=== PATIENT | female | born 1985 | race Caucasian/White ===

== ENCOUNTER 2018-06-04 20:54 | Observation (INO) | payer BC ==
[2018-06-04 21:33] LABS: Bilirubin Negative (Negative); Blood, Urine Small (Negative); Clarity Hazy (Clear); Glucose, Urine (Dipstick) Negative (Negative); Leukocyte Small (Negative); Nitrite Negative (Negative); Protein, Urine (Dipstick) 30 mg/dL (Neg-Trace); Urobilinogen 0.2 mg/dL (0.2-1.0)
[2018-06-04 21:41] LABS: #Basophils 0.1 thou/uL (0.0-0.2); #Monocytes 0.7 thou/uL (0.11-0.59); #Neutrophils 11.4 thou/uL (1.40-6.50); %Basophils 0.5 % (0.0-1.0); %Eosinophils 0.2 % (0.0-10.0); %Lymphocytes 7.8 % (21.0-51.0); %Monocytes 5.2 % (0.0-10.0); %Neutrophils 86.3 % (42.0-75.0); Hemoglobin 13.4 g/dL (12.0-16.0); Mean Corpuscular Volume 84.7 fL (78.0-98.0); Mean Platelet Volume 9.2 fL (7.4-10.4); Platelet Count 241 thou/uL (130-400); RBC Distribution Width 11.4 % (11.5-14.5); Red Blood Cell (RBC) Count 4.79 mill/uL (4.20-5.40); White Blood Cell (WBC) Count 13.2 thou/uL (4.8-10.8)
[2018-06-04 21:42] LABS: Bacteria/HPF 1+ HPF (None Seen); RBC/HPF 0-3 HPF (0-3)
[2018-06-04] MEDS ORDERED: Morphine 4 MG/ML VIAL ONE (21:53)
[2018-06-04] MEDS ORDERED: Ondansetron HCl/PF 4 MG/2 ML Vial ONE (21:54)
[2018-06-04] MEDS ORDERED: Acetaminophen 500 MG TAB ONE (21:54)
[2018-06-04 22:01] LABS: ALT (SGPT) 7 U/L (8-55); AST (SGOT) 16 U/L (5-34); Albumin 4.3 g/dL (3.5-5.0); Alkaline Phosphatase 64 U/L (40-150); Anion Gap 16 mmol/L (10-20); BUN (Urea Nitrogen) 13 mg/dL (7.0-18.7); Bilirubin, Total 0.5 mg/dL (0.2-1.2); Calc. Creatinine Clearance 0 mL/min (70-130); Calcium 9.4 mg/dL (7.8-10.44); Carbon Dioxide 25 mmol/L (22-29); Chloride 102 mmol/L (98-107); Estimated GFR-MDRD 79; Globulin 3.3 g/dL (2.4-3.5); Glucose 91 mg/dL (70-105); Potassium 3.8 mmol/L (3.5-5.1); Protein, Total 7.6 g/dL (6.0-8.3); Sodium 139 mmol/L (136-145)
--- NOTE | 2018-06-04 23:56 | CT ---
CT ABDOMEN AND PELVIS WITH ORAL AND IV CONTRAST: HISTORY: Right lower quadrant pain. FINDINGS: The lung bases are clear. The liver, spleen, pancreas, adrenal glands, and kidneys are normal. No c alcified gallstones are seen. No free air, free fluid, or lymphadenopathy is seen in the abdomen or pelvis. The small bowel loops are not abnormally dilated. There is thickening of the wall of the te rminal ileum. An abnormally dilated appendix is not seen. Uterus and ovaries are present. IMPRESSION: No definite evidence of appendicitis. There is thickening of the wall of the terminal ileum. The po ssibility of irritable bowel disease should be considered. Further evaluation with colonoscopy would be helpful. POS: [facility]
[2018-06-05] MEDS ORDERED: metroNIDAZOLE 500 MG/100 ML BAG ONE (01:03)
[2018-06-05] MEDS ORDERED: Cefepime 2 GM VIAL ONE (01:03)
[2018-06-05] MEDS ORDERED: Ondansetron HCl/PF 4 MG/2 ML Vial ONE (02:15)
[2018-06-05] MEDS ORDERED: Dextrose 5%-Lactated Ringers 1,000 ML IV SCH (03:00)
[2018-06-05 03:20] VITALS: BMI 27.1
[2018-06-05] MEDS ORDERED: Acetaminophen 1,000 MG in Premix Bag 1 BAG IVPB PRN (03:23)
[2018-06-05] MEDS: Ketorolac Tromethamine 30 MG/ML VIAL IVP PRN ×4 (03:33→20:40)
[2018-06-05 07:14] LABS: #Lymphocytes 1.2 thou/uL (1.20-3.40); #Monocytes 1.1 thou/uL (0.11-0.59); #Neutrophils 10.3 thou/uL (1.40-6.50); %Basophils 0.2 % (0.0-1.0); %Eosinophils 0.2 % (0.0-10.0); %Lymphocytes 9.3 % (21.0-51.0); %Monocytes 8.4 % (0.0-10.0); Mean Corpuscular HGB CONC 33.8 g/dL (32.0-36.0); Mean Corpuscular Hemoglobin 28.9 pg (27.0-31.0); Mean Corpuscular Volume 85.8 fL (78.0-98.0); Mean Platelet Volume 7.8 fL (7.4-10.4); Platelet Count 234 thou/uL (130-400); RBC Distribution Width 11.5 % (11.5-14.5); Red Blood Cell (RBC) Count 4.13 mill/uL (4.20-5.40); White Blood Cell (WBC) Count 12.6 thou/uL (4.8-10.8)
[2018-06-05] MEDS ORDERED: Ondansetron ODT 8 MG TAB PO PRN (07:31)
[2018-06-05] MEDS ORDERED: Ondansetron ORAL SOLN. 4 MG/5 ML UDCUP PO PRN ×2 (07:31)
[2018-06-05] MEDS ORDERED: Ondansetron ODT 8 MG TAB SL PRN (07:31)
[2018-06-05] MEDS ORDERED: Ondansetron HCl/PF 4 MG/2 ML Vial IVP PRN (07:31)
--- NOTE | 2018-06-05 07:44 | HP ---
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 of right lateral mid abdominal pain. Approximately 11:30 a.m. she developed fever and nausea. Pain is worse with movement. She has not had any alterat ion of her bowel habits. She denies prior biliary symptoms. It does hurt when she takes a deep charisse th. She is a 2, para 2 single mother of a 12-year-old and 9-year-old. ALLERGIES: PENICILLIN. TOBACCO: None. ALCOHOL: Rarely. PAST SURGICAL HISTORY: Hand surgery. PAST MEDICAL HISTORY: Polycystic ovaries. REVIEW OF SYSTEMS: Ten point noncontributory. PHYSICAL EXAMINATION: VITAL SIGNS: Height 5 foot 6, 168 pounds, 27 BMI, 100.6 degrees 103, 99/55. HEENT: Unremarkable. Sclerae are nonicteric. LUNGS: Clear to auscultation. CARDIAC: Regular rate and rhythm without murmur or gallop. ABDOMEN: Soft, tenderness in her right upper quadrant with mild guarding, right lower quadrant is no ntender. No palpable masses. EXTREMITIES: Unremarkable. No ankle edema, palpable pedal and radial pulses. SKIN: Nonjaundiced. LYMPH: No lymphadenopathy in neck, axilla or groins. LABORATORY DATA: White count 12, down from 13 yesterday, hemoglobin 12. Comprehensive metabolic pro file normal with normal liver function test, urinalysis reveals a small amount of blood, 1+ bacteria. White count 4-6. ASSESSMENT AND PLAN: Fever, abdominal pain of uncertain etiology. CAT scan revealed changes of mild ileal inflammation. An inflamed enlarged appendix was not visualized. Urinalysis is not suggestive of a urinary tract infection. Nitrites are negative. There is no inflammation noted on her CAT sca n of her gallbladder. We will obtain a gallbladder ultrasound and make further recommendations after this. Continue n.p.o.
[2018-06-05] MEDS ORDERED: Lactated Ringer's 1,000 ML IV SCH (07:45)
[2018-06-05] MEDS ORDERED: Ondansetron HCl/PF 4 MG/2 ML Vial IVP SCH (07:45)
[2018-06-05] MEDS ORDERED: metroNIDAZOLE 500 MG in Premix Bag 1 BAG IVPB SCH (09:00)
[2018-06-05] MEDS: Enoxaparin Sodium 40 MG/0.4 ML SYRINGE SC SCH (09:02)
[2018-06-05] MEDS ORDERED: ISOVUE-370 76%-LOCM 1 ML ONE (09:49)
--- NOTE | 2018-06-05 10:01 | ULT ---
RIGHT UPPER QUADRANT ULTRASOUND: INDICATIONS: Fever. Right upper quadrant pain. COMPARISON: None. FINDINGS: No focal hepatic lesion is evident. The gallbladder is within normal limits. No sonographic Iglesias sign is reported. The common bile duct measures 3 mm. The visualized aorta and right kidney are nor mal appearing. The right kidney measures 11 cm in length. the visualized aspects of the abdominal a flor are normal appearing. IMPRESSION: No acute sonographic abnormality of the right upper quadrant. POS: [facility]
[2018-06-05] MEDS: Lactated Ringer's 1,000 ML IV SCH (15:11)
[2018-06-05] MEDS ORDERED: Metoclopramide HCl 10 MG/2 ML VIAL IVP SCH (15:15)
[2018-06-05 16:01] LABS: BHCG - Serum Negative (NEGATIVE); Pregs Control Background? CLEAR/WHITE (CLR/WHITE); Pregs Control Bar Appear? YES (CONTROL BAR)
--- NOTE | 2018-06-05 18:36 | CT ---
CT ABDOMEN AND PELVIS WITH ORAL AND IV CONTRAST: 06/05/18 HISTORY: Right lower quadrant pain. FINDINGS: Comparison is made with exam from previous night. Since yesterday's exam, there has been development of inflammatory changes adjacent to the right kid betsy, particularly the superiorly pole in Duncan's pouch. A focal hypodensity is seen in the right k idney measuring about 13 mm. There is mild heterogeneity and enhancement of the right kidney compared to the left. No free air or free fluid is seen in the abdomen or pelvis. There are a few prominent r ight common iliac lymph nodes. The small bowel loops are not abnormally dilated. The terminal ileum w hich appeared thickened on yesterday's exam has a normal appearance on the current study. A normal ap pearing appendix is seen. The remainder of the exam is otherwise stable. IMPRESSION: 1. No evidence of appendicitis. 2. Findings are suspicious for right pyelonephritis with probable phlegmonous change. Discussed over the telephone with Dr. Florez at 5:30 p.m. POS: [facility]
[2018-06-06] MEDS: Ketorolac Tromethamine 30 MG/ML VIAL IVP PRN (04:34)
[2018-06-06] MEDS: Lactated Ringer's 1,000 ML IV SCH ×3 (05:20→14:52)
[2018-06-06 06:20] LABS: #Eosinphils 0.1 thou/uL (0.0-0.7); #Lymphocytes 1.3 thou/uL (1.20-3.40); #Neutrophils 8.9 thou/uL (1.40-6.50); %Basophils 0.4 % (0.0-1.0); %Eosinophils 0.5 % (0.0-10.0); %Lymphocytes 11.2 % (21.0-51.0); %Monocytes 9.3 % (0.0-10.0); %Neutrophils 78.7 % (42.0-75.0); Hemoglobin 10.7 g/dL (12.0-16.0); Mean Corpuscular HGB CONC 33.7 g/dL (32.0-36.0); Mean Corpuscular Hemoglobin 29.2 pg (27.0-31.0); Mean Corpuscular Volume 86.7 fL (78.0-98.0); Mean Platelet Volume 8.2 fL (7.4-10.4); Platelet Count 199 thou/uL (130-400); RBC Distribution Width 11.3 % (11.5-14.5); Red Blood Cell (RBC) Count 3.64 mill/uL (4.20-5.40); White Blood Cell (WBC) Count 11.2 thou/uL (4.8-10.8)
--- NOTE | 2018-06-06 13:34 | PRG ---
DATE OF SERVICE: 06/06/2018 HISTORY: Ms. Manjarrez is doing better today. Her pain is much greatly improved. She had a fever to 1 02 degrees at 4:30 this morning, but has been afebrile since. Her white count was 11.2 today. CAT s can yesterday of the abdomen and pelvis with p.o. and IV contrast Reglan prior oral contrast revealed inflammatory changes around the kidney specific for pyelonephritis, although her urinary cultures re vealed 10-25,000 gram-negative rods. PHYSICAL EXAMINATION: LUNGS: Clear to auscultation. CARDIAC: Regular rate and rhythm without murmur or gallop. ABDOMEN: Soft, tenderness resolved. ABDOMEN: Nontender, no pain. EXTREMITIES: Unremarkable. ASSESSMENT AND PLAN: Resolving pyelonephritis. Continue IV Levaquin. If is afebrile for the next 2 4 hours perhaps she can go home tomorrow on oral antibiotics. She is tolerating her diet.
[2018-06-06] MEDS: Enoxaparin Sodium 40 MG/0.4 ML SYRINGE SC SCH (17:08)
[2018-06-07] MEDS: Lactated Ringer's 1,000 ML IV SCH ×2 (02:11→07:38)
[2018-06-07 07:36] VITALS: BP 105/66; TEMP 99.1
--- NOTE | 2018-06-07 07:52 | PRG ---
DATE OF SERVICE: 06/07/2018 Ms. Maxwell is doing well today. There is no pain. PHYSICAL EXAMINATION: VITAL SIGNS: Vital signs stable, afebrile. LUNGS: Clear to auscultation. CARDIAC: Regular rate and rhythm without murmur or gallop. ABDOMEN: Soft, nontender, no masses. EXTREMITIES: Unremarkable. ASSESSMENT AND PLAN: Pyelonephritis. Home with Levaquin for 10 days. Follow up in my office p.r.n. Follow up with primary care physician [id number] to two weeks. Call me to follow up p.r.n.
--- NOTE | 2018-06-07 12:12 | DIS ---
DATE OF ADMISSION: 06/04/2018 DATE OF DISCHARGE: 06/07/2018 DISCHARGE DIAGNOSIS: Pyelonephritis. HISTORY: A 32-year-old female presenting with abdominal pain, seen in [facility] [address] by Dr. Kurtz. She had a white count of 13,000, fevers. She had history of pain r ight lateral mid abdomen onset early in the morning, fever following 4 hours later. Later in the mor gurpreet with nausea. She had a CAT scan demonstrating terminal ileal inflammation. She had a urinalysi s that was not suspicious. She was admitted and seen and felt to have an atypical history and exam f or appendicitis. She received antibiotics in the emergency room and continued with Flagyl as she had a PENICILLIN allergy. Once I saw her and determined that she did not have appendicitis Flagyl was d iscontinued. She had some loose stools and stool cultures cyclosporine negative. Urine cultures 03/2018 at 2100 clean catch showed 10-25,000 gram negative rods. The patient because of her persiste nt fevers underwent repeat CAT scan p.o. and IV contrast revealing resolution of the TI changes with changes of pyelonephritis. She was treated with Levaquin IV. Her fevers resolved. Pain resolved. She is being discharged home at this time with follow up with her primary care physician, Levaquin p. o. 500 b.i.d. for 10 days. Follow up in my office p.r.n.
== END 2018-06-07 08:07 | disposition home or self-care (01) ==
LOC: SCSER 20:54 → 3SE 06-05 01:12
PROVIDERS: ADMIT Specialist; ATTEND Specialist
DX: N12 Tubulo-interstitial nephritis, not specified as acute or chronic (principal); B96.89 Other specified bacterial agents as the cause of diseases classified elsewhere; E28.2 Polycystic ovarian syndrome; Z79.3 Long term (current) use of hormonal contraceptives; Z88.0 Allergy status to penicillin
CPT/HCPCS: 36415; 74177; 76705; 80053; 81003; 81015; 83605; 83630; 84703; 85025; 87015; 87040; 87045; 87046; 87086; 87206; 87328; 87329; 87449; 87899; 96361; 96365; 96367; 96368; 96372; 96375; 96376; G0378; J0131; J0692; J1650; J1885; J1956; J2270; J2405; J2765

== ENCOUNTER 2020-02-25 12:28 | Emergency (ER) | payer OTHER ==
[2020-02-26 12:17] LABS: SARS-CoV-2 MS2 Positive; SARS-CoV-2 N Gene Negative; SARS-CoV-2 S Gene Negative; SARS-CoV-2 orf1ab Negative
== END 2020-02-25 13:00 | disposition home or self-care (01) ==
LOC: ERS 12:28
DX: R05 Cough (principal); R09.81 Nasal congestion; R11.10 Vomiting, unspecified; R51 Headache; Z20.828 Contact with and (suspected) exposure to other viral communicable diseases; F41.9 Anxiety disorder, unspecified; E28.2 Polycystic ovarian syndrome
CPT/HCPCS: 87635; 99283; U0003

== ENCOUNTER 2021-05-22 06:14 | Emergency (ER) | payer OTHER, SELFPAY ==
[2021-05-22 17:44] LABS: SARS-CoV-2 PCR by NAA Not Detected (NotDetected)
== END 2021-05-22 07:49 | disposition home or self-care (01) ==
LOC: ERS 06:14 → EEVIPCON 06:14 → ERS 07:49
DX: R05 Cough (principal); R50.9 Fever, unspecified; R09.81 Nasal congestion; R51.9 Headache, unspecified; Z20.822 Contact with and (suspected) exposure to COVID-19
CPT/HCPCS: 99283; U0003; U0005

== ENCOUNTER 2021-12-05 18:50 | Emergency (ER) | payer BC, SELFPAY ==
[2021-12-05] MEDS ORDERED: Acetaminophen 500 MG TAB ONE (19:59)
== END 2021-12-05 22:18 | disposition home or self-care (01) ==
LOC: ERS 18:50
DX: J01.90 Acute sinusitis, unspecified (principal)
CPT/HCPCS: 71045; 87804